=== PATIENT | female | born 1950 | race Caucasian/White ===

== ENCOUNTER → 2017-01-28 | Outpatient (CLI) | payer OTHER ==
--- NOTE | ~2017-01-28 | CR229 ---
[facility] A Service of [facility] & [facility] RADIOLOGY TEXT RESULTS PATIENT: NIKKI WICK LOCATION: [facility] : 48 UNIT #: [id number] AGE: [address]: Benjamín Gill MD SEX: F ORDER DR: [id number] [facility] [address] [place], [place] [address] [id number] O MR#: [id number] Acc #: [id number] NAME: NIKKI WICK : 1950 SEX: F STUDY DATE/TIME: 01/28/2017 12:10 UNIT: [facility] ROOM: STUDY DESCRIPTION: CR Shoulder Min 2 View Lt Attending Physician: Benjamín Gill M.D. Referring Physician: Benjamín Gill M.D. Ordering Physician: Benjamín Gill M.D. Primary Care Physician: Krystian Urban M.D. MEDICAL IMAGING REPORT This report is preliminary unless electronic signature is present EXAM Left shoulder 3 views 01/28/2017 HISTORY Left shoulder pain and decreased range of motion. Unable to raise left arm above head for 5 years. History of fractured left humeral head 5 years ago. FINDINGS 3 views of the left shoulder demonstrate stable appearing fracture deformity involving the surgical neck of the proximal left humerus. No acute fracture is seen. The bones are osteopenic. Old healed fracture deformity involving the lateral aspect of the left third and fourth ribs. There is no soft tissue abnormality. IMPRESSION Old healed fracture deformities involving the proximal left humerus and the lateral aspect of the left third and fourth ribs. No acute abnormality. Dictated by... Waqar Ceja M.D. THIS IS AN ELECTRONICALLY VERIFIED REPORT Waqar Ceja M.D. at 01/30/2017 8:17 AM JAYLENE/patience TD: 01/28/2017 17:42 JOB #: [id number] MEDICAL IMAGING REPORT Page 1 of 1 COPY
== END | disposition home or self-care (01) ==
LOC: CRAD 11:51
DX: M19.112 Post-traumatic osteoarthritis, left shoulder (principal); M25.512 Pain in left shoulder; S42.232S 3-part fracture of surgical neck of left humerus, sequela; M21.822 Other specified acquired deformities of left upper arm; M95.4 Acquired deformity of chest and rib
CPT/HCPCS: 73030

== ENCOUNTER 2017-07-06 10:06 | Emergency (ER) | payer OTHER ==
[~2017-07-06] VITALS: Ht 160 cm; Wt 53.5 kg
--- NOTE | ~2017-07-06 | EKG ---
PATIENT: NIKKI WICK UNIT #: [id number] Ventricular Rate: 70 BPM Atrial Rate: 70 BPM P-R Interval: 168 ms QRS Duration: 80 ms Q-T Interval: 400 ms QTC Calculation(Bezet): 432 ms P [place]: 82 degrees Calculated R [place]: 64 degrees Calculated T [place]: 65 degrees Diagnosis Line: Normal sinus rhythm Diagnosis Line: Normal ECG Diagnosis Line: When compared with ECG of 24-APR-2016 08:39, Diagnosis Line: T wave inversion no longer evident in Inferior Diagnosis Line: leads Diagnosis Line: Confirmed by FERNANDO VARGAS MD ([id number]) on Diagnosis Line: 07/06/2017 3:59:37 PM INTERPRETING MD: ADELAIDA
--- NOTE | ~2017-07-06 | CR72 ---
[facility] A Service of [facility] RADIOLOGY TEXT RESULTS PATIENT: NIKKI WICK LOCATION: [facility] : 48 UNIT #: [id number] AGE: [address]: Soren Laurent MD SEX: F ORDER DR: [id number] [facility] [address] [place], [place] [address] [id number] E MR#: [id number] Acc #: [id number] NAME: NIKKI WICK. : 1950 SEX: F STUDY DATE/TIME: 07/06/2017 10:41 UNIT: [facility] ROOM: STUDY DESCRIPTION: CR Chest Single View Portable Attending Physician: Soren Laurent M.D. Ordering Physician: [id number] Jacob Laurent Primary Care Physician: Krystian Urban M.D. MEDICAL IMAGING REPORT This report is preliminary unless electronic signature is present EXAM Portable chest HISTORY Shortness of breath onset prior to arrival COMPARISON 10/05/2015 TECHNIQUE Single AP view of the chest was obtained. FINDINGS A single view of the chest shows a stable configuration of the heart and mediastinum with normal heart size. Mildly prominent lung markings are seen at the right base but this is unchanged. Probably represents interstitial fibrosis. The lungs are emphysematous. The vascular pattern is normal and no pleural fluid is seen. IMPRESSION Emphysema with chronic interstitial prominence at the right lung base unchanged from the previous exam. No active infiltrates are seen. No evidence of congestive heart failure. Dictated by... Krystian Obrien M.D. THIS IS AN ELECTRONICALLY VERIFIED REPORT Krystian Obrien M.D. at 07/07/2017 10:56 AM BOBBIF/ady TD: 07/07/2017 08:26 JOB #: [id number] [facility] A Service [facility] RADIOLOGY TEXT RESULTS PATIENT: NIKKI WICK LOCATION: [facility] : 48 UNIT #: [id number] AGE: [address]: Soren Laurent MD SEX: F ORDER DR: MEDICAL IMAGING REPORT Page 1 of 1 COPY
--- NOTE | ~2017-07-06 | CT16 ---
[facility] A Service of [facility] RADIOLOGY TEXT RESULTS PATIENT: NIKKI WICK LOCATION: [facility] : 48 UNIT #: [id number] AGE: [address]: Soren Laurent MD SEX: F ORDER DR: [id number] [facility] [address] [place], [place] [address] [id number] E MR#: [id number] Acc #: [id number] NAME: NIKKI WICK. : 1950 SEX: F STUDY DATE/TIME: 07/06/2017 13:14 UNIT: [facility] ROOM: STUDY DESCRIPTION: CT Angio Chest for PE Attending Physician: Soren Laurent M.D. Ordering Physician: Soren Laurent M.D. Primary Care Physician: Krystian Urban M.D. MEDICAL IMAGING REPORT This report is preliminary unless electronic signature is present EXAM CT chest PE protocol HISTORY Shortness of air x3 months now worse with activity today. History of uvula cancer. History of COPD. COMPARISON 04/24/2016 TECHNIQUE Axial images performed through the chest following IV contrast. 3D coronal and sagittal reconstructed images were reviewed. This CT exam was performed with one or more of the following radiation dose reduction techniques: Automatic exposure control, adjustment of mA and/or kV according to patient size, and iterative reconstruction. FINDINGS Examination demonstrates severe emphysema and fibrosis. No acute airspace disease or consolidation. No effusions. Trachea and bronchi are unremarkable. Enlargement of the central pulmonary arteries suggest pulmonary hypertension, but no evidence of pulmonary embolus. Mild aortic atherosclerotic changes. Heart size upper limits of normal. Minimal lymphadenopathy. Upper abdomen remarkable for postsurgical changes of prior gastric bypass. Extensive scarring noted within the left kidney. Mild degenerative changes of the thoracic spine. Thoracic inlet remarkable for a calcified left and right thyroid nodules. These appear unchanged from April 2016. These demonstrate peripheral calcifications and their stability supports benign etiology. [facility] A Service of [facility] & [facility] RADIOLOGY TEXT RESULTS PATIENT: NIKKI WICK LOCATION: [facility] : 48 UNIT #: [id number] AGE: [address]: Soren Laurent MD SEX: F ORDER DR: IMPRESSION 1. Severe emphysema and fibrosis. No acute cardiopulmonary disease. 2. Suspected pulmonary hypertension. 3. Mild mediastinal and hilar lymphadenopathy probably reactive due to chronic lung disease. 4. Extensive left renal cortical scarring unchanged from prior studies probably related to prior reflux or infection. 5. Stable calcified thyroid nodules. Dictated by... Tamiko Cordero M.D. THIS IS AN ELECTRONICALLY VERIFIED REPORT Tamiko Cordero M.D. at 07/07/2017 7:36 PM ROBIN/fiorella TD: 07/07/2017 10:32 JOB #: [id number] MEDICAL IMAGING REPORT Page 1 of 1 COPY
[2017-07-06 10:48] LABS: BASOPHIL# 0.1 X10e3 (0-0.3); BASOPHIL% 0.8 % (0-2.5); EOSINOPHIL# 0.2 X10e3 (0-0.7); EOSINOPHIL% 1.5 % (0.0-7.0); HEMATOCRIT 41.2 % (35.0-45.0); HEMOGLOBIN 13.6 gm/dL (12.0-16.0); LYMPHOCYTE# 1.4 X10e3 (1.0-3.5); MEAN CELL VOLUME 89.4 FL (83-96); MEAN CORPUSCULAR HEMOGLOBIN 29.5 PG (28-34); MEAN PLATELET VOLUME 9.2 FL (6.5-11.5); MONOCYTE# 1.1 X10e3 (0-1.0); MONOCYTE% 9.8 % (3.0-12.0); NEUTROPHIL# 8.9 X10e3 (1.5-7.1); NEUTROPHIL% 75.9 % (40-75); PLATELET COUNT 245 X10e3 (140-420); RED BLOOD COUNT 4.61 X10e (3.90-5.30); RED CELL DISTRIBUTION WIDTH 13.4 % (11.0-15.5); WHITE BLOOD COUNT 11.7 X10e3 (4.0-10.5)
[2017-07-06 10:50] LABS: DIFF IND NO
[2017-07-06 11:17] LABS: PROTHROMBIN TIME (PATIENT) 11.1 SECONDS (10.0-11.7)
[2017-07-06 12:30] LABS: ALBUMIN SERUM 3.5 g/dL (3.5-5.0); BILIRUBIN, DIRECT 0.1 mg/dL (0.0-0.2); BILIRUBIN,INDIRECT 0.5 mg/dL (0.0-0.9); BILIRUBIN,TOTAL 0.6 mg/dL (0.2-2.0); BUN/CREATININE RATIO 18.33; CALCIUM SERUM 9.3 mg/dL (8.4-10.2); CREATININE SERUM 0.6 mg/dL (0.6-1.4); GLOM FILT RATE Estimated 93.7 mL/min (>60); POTASSIUM 4.1 mmol/L (3.5-5.1); PROTEIN TOTAL SERUM 7.3 g/dL (6.0-8.3)
[2017-07-06 14:28] LABS: POC - CKMB 1.4 ng/mL (0.0-7.9); POC - TROPONIN <0.05 ng/mL (<=0.05)
== END 2017-07-06 14:40 | disposition home or self-care (01) ==
LOC: CED 10:06
PROVIDERS: Emergency Medicine
DX: I27.2 Other secondary pulmonary hypertension (principal); I50.9 Heart failure, unspecified; J44.9 Chronic obstructive pulmonary disease, unspecified; F17.200 Nicotine dependence, unspecified, uncomplicated
CPT/HCPCS: 36415; 71010; 71275; 80048; 80076; 82553; 83605; 83880; 84484; 85025; 85379; 85610; 87040; 93005; 99285; Q9967